=== PATIENT | female | born 1960 | race Caucasian/White ===

== ENCOUNTER 2022-05-07 09:13 | Emergency (ER) | payer BC, SELFPAY ==
[2022-05-07] VITALS (9 sets, daily range): BP systolic 107–135; BP diastolic 57–67; PULSE 77–98; RESP 16–19; TEMP 36.8; O2SAT 98–100; BMI 27.3
[2022-05-07 10:07] LABS: Appearance Urine UA CLEAR; Bilirubin Urine UA 2+ (NEGATIVE); Color Urine UA YELLOW; Glucose Urine UA TRACE g/dL (Negative); Ketones Urine UA 3+ (NEGATIVE); Leukocyte Esterase Urine UA NEGATIVE (NEGATIVE); Nitrite Urine UA NEGATIVE (Negative); Occult Blood Urine UA 2+ (Negative); Protein Urine UA 2+ (Negative); Specific Gravity Urine UA 1.025 (1.000-1.035); Urobilinogen Urine UA 0.2 E.U./dL (0.2)
[2022-05-07 10:17] LABS: Ictotest Urine Negative (Negative); RBC Urine 5-10/HPF (0-5/HPF)
[2022-05-07 10:18] LABS: Bacteria Urine Many (>30); Culture Indicated Urine Cult Not Indicated; Mucus Urine 2+ (Negative); Squamous Epithelial Cell Urine >30 /HPF (0-5/HPF); WBC Urine 0-1/HPF (0-5/HPF)
[2022-05-07 11:16] LABS: Adenovirus F 40/41 Not Detected (Not Detect); Astrovirus Not Detected (Not Detect); Campylobacter Not Detected (Not Detect); Cryptosporidium Not Detected (Not Detect); Cyclospora cayetanensis Not Detected (Not Detect); Entamoeba histolytica Not Detected (Not Detect); Enteroaggregative E.coli Not Detected (Not Detect); Enteropathogenic E.coli Not Detected (Not Detect); Enterotoxigenic E.coli It/st Not Detected (Not Detect); Giardia lamblia Not Detected (Not Detect); Norovirus GI/GII Not Detected (Not Detect); Plesiomonsa shigelloides Not Detected (Not Detect); Rotavirus A Not Detected (Not Detect); Salmonella Not Detected (Not Detect); Sapovirus Not Detected (Not Detect); Shiga-like toxin-prod E.coli Not Detected (Not Detect); Shigella/Enteroinvasive E.coli Not Detected (Not Detect); Vibrio Not Detected (Not Detect); Vibrio cholerae Not Detected (Not Detect); Yersinia enterocolitica Not Detected (Not Detect)
[2022-05-07 11:17] LABS: Clostridium difficile toxin AB Detected (Not Detect)
[2022-05-07 12:05] LABS: Add Manual Diff / Slide Review NO; Basophils Absolute Auto 0 /uL (0-100); Basophils Percent Auto 0.3 % (0-2); Eosinophils Absolute Auto 200 /uL (0-450); Eosinophils Percent Auto 1.7 % (2-4); Hematocrit 39.1 % (36-46); Hemoglobin 13.2 g/dL (12.0-16.0); Lymphocytes Absolute Auto 1500 /uL (1100-4500); Lymphocytes Percent Auto 10.7 % (25-40); Mean Corpuscular HGB Conc 33.8 % (30-36); Mean Corpuscular Hemoglobin 29.1 PG (26-34); Mean Corpuscular Volume 86.1 fL (80-100); Monocytes Absolute Auto 1000 /uL (0-900); Neutrophils Absolute Auto 11100 /uL (1500-7000); Neutrophils Percent Auto 80.3 % (50-75); Platelet Count 236 X10^3/uL (150-400); Red Blood Cell Count 4.55 X10^6/uL (4.0-5.2); Red Cell Distribution Width 13.5 % (11.6-14.8); White Blood Cell Count 13.8 X10^3/uL (4.5-11.0)
--- NOTE | 2022-05-07 12:24 | ED_ITS ---
HPI - Nausea/Vomiting/Diarrhea <DANTE Umana - Last Filed: 05/07/22 15:12> General Chief complaint: Nausea/Vomiting/Diarrhea Stated complaint: diarrhea, now has black stool Time Seen by Provider: 05/07/22 11:04 Source: patient Mode of arrival: Family Vehicle History of Present Illness HPI Narrative: Patient presents to the emergency department complaining of severe diarrhea over the last week but endorses that she is had diarrhea for approximately four months. She states that she feels poorly, states everything from her ribcage down is tender in her abdomen. She complains of nausea, diarrhea frequently, states that her stools are dark in color, and she feels severe discomfort in abdomen. Denies any fever, chills, diaphoresis, weakness, states that she has lost quite a bit of weight. She endorses also having flank pain which started recently. She feels dehydrated and is concerned something wrong with her falls. She denies any history of abdominal surgeries in the past. She states that she is traveling, she lives in [place], has a flight back home in two days. Related Data Previous Rx's Medication Instructions Recorded ondansetron 4 mg disintegrating 4 mg PO Q8H PRN nausea and 05/07/22 tablet vomiting #10 tabs vancomycin 125 mg capsule 125 mg PO QID 12 days #48 caps 05/07/22 Allergies Allergy/AdvReac Type Severity Reaction Status Date / Time levofloxacin [From Levaquin] Allergy Rash Verified 05/07/22 09:33 Review of Systems <DANTE Umana - Last Filed: 05/07/22 15:12> Review of Systems Narrative: General: denies fever, chills Head/Neck: denies headache, neck pain Eyes: denies visual changes, eye pain Cardio: denies chest pain, palpitations Respiratory: denies shortness of breath, cough GI: Complains of significant abdominal pain with nausea, vomiting, or diarrhea : Endorses dysuria, hematuria or flank pain MSK: denies new joint pain, muscle weakness or swelling Skin: denies rash, itching or wound Neuro: denies numbness, tingling, dizziness Patient History <DANTE Umana - Last Filed: 05/07/22 15:12> Social History Smoking Status: Never smoker Smoking Status: Never smoker alcohol intake frequency: 0-2 drinks per day Substance Use Type: does not use Exam <DANTE Umana - Last Filed: 05/07/22 15:12> Narrative Exam Narrative: Independently reviewed vitals signs and nursing notes. General: Appears uncomfortable, mild distress, well groomed Head: atraumatic, symmetrical facial expressions Neck: supple Eyes: equal round and reactive, EOMI, conjunctiva normal Nose: nares patent, no rhinorrhea Mouth/Throat: moist mucus membranes Cardiovascular: regular rate and rhythm, no peripheral edema, warm extremities Respiratory: normal effort, able to speak in complete sentences, no audible wheezing, stridor, or rales. No retractions or tachypnea. GI: abdomen soft, diffusely tender to palpation, mildly distended, no masses, no exquisite tenderness with exam, without guarding or rebound, suprapubic ten derness MSK: moves all extremities, neurovascularly intact, no weakness, normal tone Skin: brisk capillary refill, no rash, no erythema Neuro: normal speech and cognition, A&O x3 Psych: mental status is grossly normal, congruent mood, normal affect, pleasant and cooperative Initial Vital Signs Initial Vital Signs: Vital Signs Temperature 98.3 F 05/07/22 09:25 Pulse Rate 98 H 05/07/22 09:25 Respiratory Rate 19 05/07/22 09:25 Blood Pressure 121/62 05/07/22 09:25 Pulse Oximetry 99 05/07/22 09:25 Oxygen Delivery Method 05/07/22 09:25 <Trisha Lam DO - Last Filed: 05/13/22 21:40> Initial Vital Signs Initial Vital Signs: Vital Signs Temperature 98.3 F 05/07/22 09:25 Pulse Rate 98 H 05/07/22 09:25 Respiratory Rate 19 05/07/22 09:25 Blood Pressure 121/62 05/07/22 09:25 Pulse Oximetry 99 05/07/22 09:25 Oxygen Delivery Method 05/07/22 09:25 Course <DANTE Umana - Last Filed: 05/07/22 15:12> Orders Ordered: Discontinued Medications Hydromorphone HCl (Hydromorphone 0.5 Mg Inj) 0.5 mg IV NOW ONE Stop: 05/07/22 12:23 Last Admin: 05/07/22 13:40 Dose: 0.5 mg Documented By: LENKA Lactated Ringer's (Lactated Ringers) 1,000 mls @ 1,000 mls/hr IV BOLUS ONE Stop: 05/07/22 13:21 Last Infusion: 05/07/22 15:40 Dose: 0 mls/hr Documented By: Admin: 05/07/22 13:41 Dose: 1,000 mls/hr Documented By: LENKA Ceftriaxone Sodium 1,000 mg/ (Sodium Chloride) 100 mls @ 200 mls/hr IV NOW ONE Stop: 05/07/22 12:23 Last Infusion: 05/07/22 14:15 Dose: 0 mls/hr Documented By: Admin: 05/07/22 13:41 Dose: 200 mls/hr Documented By: LENKA Pantoprazole Sodium (Pantoprazole 40 Mg Vial) 20 mg IV NOW ONE Stop: 05/07/22 12:41 Last Admin: 05/07/22 13:41 Dose: 20 mg Documented By: LENKA Vancomycin HCl (Vancomycin 125 Mg Capsule) 125 mg PO NOW ONE Stop: 05/07/22 12:23 Last Admin: 05/07/22 13:00 Dose: 125 mg Documented By: LENKA Vital Signs Vital signs: Vital Signs - 8 hr 05/07/22 09:25 05/07/22 11:05 05/07/22 11:05 Temperature 98.3 F Pulse Rate 98 H 83 Respiratory Rate 19 Blood Pressure 121/62 135/67 Pulse Oximetry 99 99 Oxygen Delivery Method Room Air 05/07/22 13:09 05/07/22 13:36 05/07/22 13:46 Temperature Pulse Rate 84 85 Respiratory Rate 16 Blood Pressure 121/65 Pulse Oximetry 99 99 Oxygen Delivery Method 05/07/22 13:46 Temperature Pulse Rate 82 Respiratory Rate Blood Pressure Pulse Oximetry 99 Oxygen Delivery Method <Trisha Lam DO - Last Filed: 05/13/22 21:40> Orders Ordered: Discontinued Medications Hydromorphone HCl (Hydromorphone 0.5 Mg Inj) 0.5 mg IV NOW ONE Stop: 05/07/22 12:23 Last Admin: 05/07/22 13:40 Dose: 0.5 mg Documented By: LENKA Lactated Ringer's (Lactated Ringers) 1,000 mls @ 1,000 mls/hr IV BOLUS ONE Stop: 05/07/22 13:21 Last Infusion: 05/07/22 15:40 Dose: 0 mls/hr Documented By: Admin: 05/07/22 13:41 Dose: 1,000 mls/hr Documented By: LENKA Ceftriaxone Sodium 1,000 mg/ (Sodium Chloride) 100 mls @ 200 mls/hr IV NOW ONE Stop: 05/07/22 12:23 Last Infusion: 05/07/22 14:15 Dose: 0 mls/hr Documented By: Admin: 05/07/22 13:41 Dose: 200 mls/hr Documented By: LENKA Pantoprazole Sodium (Pantoprazole 40 Mg Vial) 20 mg IV NOW ONE Stop: 05/07/22 12:41 Last Admin: 05/07/22 13:41 Dose: 20 mg Documented By: LENKA Vancomycin HCl (Vancomycin 125 Mg Capsule) 125 mg PO NOW ONE Stop: 05/07/22 12:23 Last Admin: 05/07/22 13:00 Dose: 125 mg Documented By: LENKA Vital Signs Vital signs: Vital Signs - 8 hr 05/07/22 09:25 05/07/22 11:05 05/07/22 11:05 Temperature 98.3 F Pulse Rate 98 H 83 Respiratory Rate 19 Blood Pressure 121/62 135/67 Pulse Oximetry 99 99 Oxygen Delivery Method Room Air 05/07/22 13:09 05/07/22 13:36 05/07/22 13:46 Temperature Pulse Rate 84 85 Respiratory Rate 16 Blood Pressure 121/65 Pulse Oximetry 99 99 Oxygen Delivery Method 05/07/22 13:46 Temperature Pulse Rate 82 Respiratory Rate Blood Pressure Pulse Oximetry 99 Oxygen Delivery Method MDM - Nausea/Vomiting/Diarrhea <DANTE Umana - Last Filed: 05/07/22 15:12> Lab Data Result diagrams: 05/07/22 11:51 05/07/22 11:51 Labs: Lab Results 05/07/22 05/07/22 05/07/22 Range/Units 09:55 09:55 09:55 WBC (4.5-11.0) X10^3/uL RBC (4.0-5.2) X10^6/uL Hgb (12.0-16.0) g/dL Hct (36-46) % MCV (80-100) fL MCH (26-34) PG MCHC (30-36) % RDW (11.6-14.8) % Plt Count (150-400) X10^3/uL Neut % (Auto) (50-75) % Lymph % (Auto) (25-40) % [place] % (Auto) (3-14) % Eos % (Auto) (2-4) % Baso % (Auto) (0-2) % Neut # (Auto) (9658-0185) /uL Lymph # (Auto) (7040-0417) /uL [place] # (Auto) (0-900) /uL Eos # (Auto) (0-450) /uL Baso # (Auto) (0-100) /uL Sodium (137-145) mmol/L Potassium (3.4-5.1) mmol/L Chloride (98-107) mmol/L Carbon Dioxide (22-32) mmol/L BUN (7-17) mg/dL Creatinine (0.52-1.04) mg/dL Estimated GFR (>60) mL/min BUN/Creatinine Ratio (6-22) Glucose (80-110) mg/dL Calcium (8.4-10.2) mg/dL Total Bilirubin (0.2-1.3) mg/dL AST (14-36) IU/L ALT (<35) IU/L Alkaline Phosphatase (38-126) U/L Total Protein (6.3-8.2) g/dL Albumin (3.5-5.0) g/dL Globulin (1.7-4.1) g/dL Albumin/Globulin Ratio (1.0-2.8) Lipase (23-300) U/L Urine Color Yellow Urine Appearance Clear Urine pH 6.0 (4.5-8.0) Ur Specific [place] 1.025 (1.000-1.035) Urine Protein 2+ H (Negative) Urine Glucose (UA) Trace H (Negative) g/dL Urine Ketones 3+ H (NEGATIVE) Urine Occult Blood 2+ H (Negative) Urine Nitrate Negative (Negative) Urine Bilirubin 2+ H (NEGATIVE) Ur Bilirubin Confirm Negative (Negative) Urine Urobilinogen 0.2 (0.2) E.U./dL Ur Leukocyte Esterase Negative (NEGATIVE) Urine RBC 5-10/hpf H (0-5/HPF) Urine WBC 0-1/hpf (0-5/HPF) Ur Squamous Epith Cells >30 /hpf H (0-5/HPF) Urine Bacteria Many (>30) H (None) Urine Mucus 2+ H (Negative) Ur Culture Indicated? Cult not indicated Stl C. cayetanensis PCR Not detected (Not Detect) Stool Rotavirus (PCR) Not detected (Not Detect) Stool Adenovirus (PCR) Not detected (Not Detect) Stool Astrovirus (PCR) Not detected (Not Detect) Stool Cryptosporidium PCR Not detected (Not Detect) Stl E.coli Shiga Tox PCR Not detected (Not Detect) St Sh/Enteroin Ecoli PCR Not detected (Not Detect) Stool E coli O157 PCR Not Reportable Stl Enterotoxigenic E PCR Not detected (Not Detect) Stool EPEC (PCR) Not detected (Not Detect) Stl E. histolytica PCR Not detected (Not Detect) Stool Giardia Lamblia PCR Not detected (Not Detect) Stool Sapovirus (PCR) Not detected (Not Detect) Stl P. shigelloides PCR Not detected (Not Detect) St Y.enterocolitica PCR Not detected (Not Detect) Stool Vibrio (PCR) Not detected (Not Detect) Stl Vibrio cholerae PCR Not detected (Not Detect) Stl Enteroaggr Ecoli PCR Not detected (Not Detect) Stl Norovirus GI/GII PCR Not detected (Not Detect) Campylobacter (PCR) Not detected (Not Detect) C. difficile Tox (PCR) Detected H (Not Detect) C. diff Toxin A&B (EIA) Negative (Negative) Salmonella (PCR) Not detected (Not Detect) 05/07/22 05/07/22 Range/Units 11:51 11:51 WBC 13.8 H (4.5-11.0) X10^3/uL RBC 4.55 (4.0-5.2) X10^6/uL Hgb 13.2 (12.0-16.0) g/dL Hct 39.1 (36-46) % MCV 86.1 (80-100) fL MCH 29.1 (26-34) PG MCHC 33.8 (30-36) % RDW 13.5 (11.6-14.8) % Plt Count 236 (150-400) X10^3/uL Neut % (Auto) 80.3 H (50-75) % Lymph % (Auto) 10.7 L (25-40) % [place] % (Auto) 7.0 (3-14) % Eos % (Auto) 1.7 L (2-4) % Baso % (Auto) 0.3 (0-2) % Neut # (Auto) 17776 H (7094-3676) /uL Lymph # (Auto) 1500 (9405-4172) /uL [place] # (Auto) 1000 H (0-900) /uL Eos # (Auto) 200 (0-450) /uL Baso # (Auto) 0 (0-100) /uL Sodium 136 L (137-145) mmol/L Potassium 4.0 (3.4-5.1) mmol/L Chloride 101 (98-107) mmol/L Carbon Dioxide 22 (22-32) mmol/L BUN 14 (7-17) mg/dL Creatinine 0.82 (0.52-1.04) mg/dL Estimated GFR > 60 (>60) mL/min BUN/Creatinine Ratio 17.1 (6-22) Glucose 79 L (80-110) mg/dL Calcium 8.7 (8.4-10.2) mg/dL Total Bilirubin 0.6 (0.2-1.3) mg/dL AST 26 (14-36) IU/L ALT 17 (<35) IU/L Alkaline Phosphatase 56 (38-126) U/L Total Protein 6.3 (6.3-8.2) g/dL Albumin 3.7 (3.5-5.0) g/dL Globulin 2.6 (1.7-4.1) g/dL Albumin/Globulin Ratio 1.4 (1.0-2.8) Lipase 41 (23-300) U/L Urine Color Urine Appearance Urine pH (4.5-8.0) Ur Specific [place] (1.000-1.035) Urine Protein (Negative) Urine Glucose (UA) (Negative) g/dL Urine Ketones (NEGATIVE) Urine Occult Blood (Negative) Urine Nitrate (Negative) Urine Bilirubin (NEGATIVE) Ur Bilirubin Confirm (Negative) Urine Urobilinogen (0.2) E.U./dL Ur Leukocyte Esterase (NEGATIVE) Urine RBC (0-5/HPF) Urine WBC (0-5/HPF) Ur Squamous Epith Cells (0-5/HPF) Urine Bacteria (None) Urine Mucus (Negative) Ur Culture Indicated? Stl C. cayetanensis PCR (Not Detect) Stool Rotavirus (PCR) (Not Detect) Stool Adenovirus (PCR) (Not Detect) Stool Astrovirus (PCR) (Not Detect) Stool Cryptosporidium PCR (Not Detect) Stl E.coli Shiga Tox PCR (Not Detect) St Sh/Enteroin Ecoli PCR (Not Detect) Stool E coli O157 PCR Stl Enterotoxigenic E PCR (Not Detect) Stool EPEC (PCR) (Not Detect) Stl E. histolytica PCR (Not Detect) Stool Giardia Lamblia PCR (Not Detect) Stool Sapovirus (PCR) (Not Detect) Stl P. shigelloides PCR (Not Detect) St Y.enterocolitica PCR (Not Detect) Stool Vibrio (PCR) (Not Detect) Stl Vibrio cholerae PCR (Not Detect) Stl Enteroaggr Ecoli PCR (Not Detect) Stl Norovirus GI/GII PCR (Not Detect) Campylobacter (PCR) (Not Detect) C. difficile Tox (PCR) (Not Detect) C. diff Toxin A&B (EIA) (Negative) Salmonella (PCR) (Not Detect) [facility] [place] Narrative Medical decision making narrative: This is a 62-year-old female presents to the emergency department complaining of diarrhea for at least four months but worse last week and especially worse over last 48 hours. She endorses having dark stools, has been afebrile, has not been on any antibiotics recently. She is traveling from [place] and came to the emergency department due to her frequent C and diarrhea and abdominal pain. Her lab work today was significant for elevated WBC, leukocytosis of 13.8, sodium of 136, her urine was significant for bacteria, RBCs and her stool was positive for C difficile. Patient denies any known exposure but states that over the last week of traveling it definitely got worse. She was given 1 L of lactated Ringer's, Zofran, treated her urine because she was symptomatic with dysuria and suprapubic pressure with ceftriaxone. Prescribe patient vancomycin 125 mg q.i.d. for 12 days so she has time to follow-up with her primary care provider at home. She has a history of allergy to Levaquin, denies any prior infections of Clostridium difficile. Patient understands the stay hydrated, to not take any stool bulking agents as she has been and to follow-up with her provider as needed. She was given strict return precautions, she was prescribed cephalexin for her bacterial load in her urine and culture is pending. No peritoneal signs on abdominal exam. Patient remains p.o. tolerant. Serial abdominal exam without increase in abdominal pain. Given history and exam, low suspicion for acute abdominal process, such as acute cholecystitis, pancreatitis, perforated viscus, atypical appendicitis, colitis, diverticulitis or torsion. Extensive conversation about ER return precautions and need for close follow-up. Patient is appropriate and amenable to discharge home. Vital signs are stable on repeat examination is unremarkable. Patient has been informed of results. Patient has been given strict return to ER precautions for any new or worsening symptoms. Patient understands to follow up closely with outpatient providers as inst ructed. Patient understands plan and agrees to discharge home. All questions and concerns answered at this time. <Trisha Lam, DO - Last Filed: 05/13/22 21:40> Lab Data Labs: Lab Results 05/07/22 05/07/22 05/07/22 Range/Units 09:55 09:55 09:55 WBC (4.5-11.0) X10^3/uL RBC (4.0-5.2) X10^6/uL Hgb (12.0-16.0) g/dL Hct (36-46) % MCV (80-100) fL MCH (26-34) PG MCHC (30-36) % RDW (11.6-14.8) % Plt Count (150-400) X10^3/uL Neut % (Auto) (50-75) % Lymph % (Auto) (25-40) % [place] % (Auto) (3-14) % Eos % (Auto) (2-4) % Baso % (Auto) (0-2) % Neut # (Auto) (0561-4735) /uL Lymph # (Auto) (3487-2572) /uL [place] # (Auto) (0-900) /uL Eos # (Auto) (0-450) /uL Baso # (Auto) (0-100) /uL Sodium (137-145) mmol/L Potassium (3.4-5.1) mmol/L Chloride (98-107) mmol/L Carbon Dioxide (22-32) mmol/L BUN (7-17) mg/dL Creatinine (0.52-1.04) mg/dL Estimated GFR (>60) mL/min BUN/Creatinine Ratio (6-22) Glucose (80-110) mg/dL Calcium (8.4-10.2) mg/dL Total Bilirubin (0.2-1.3) mg/dL AST (14-36) IU/L ALT (<35) IU/L Alkaline Phosphatase (38-126) U/L Total Protein (6.3-8.2) g/dL Albumin (3.5-5.0) g/dL Globulin (1.7-4.1) g/dL Albumin/Globulin Ratio (1.0-2.8) Lipase (23-300) U/L Urine Color Yellow Urine Appearance Clear Urine pH 6.0 (4.5-8.0) Ur Specific [place] 1.025 (1.000-1.035) Urine Protein 2+ H (Negative) Urine Glucose (UA) Trace H (Negative) g/dL Urine Ketones 3+ H (NEGATIVE) Urine Occult Blood 2+ H (Negative) Urine Nitrate Negative (Negative) Urine Bilirubin 2+ H (NEGATIVE) Ur Bilirubin Confirm Negative (Negative) Urine Urobilinogen 0.2 (0.2) E.U./dL Ur Leukocyte Esterase Negative (NEGATIVE) Urine RBC 5-10/hpf H (0-5/HPF) Urine WBC 0-1/hpf (0-5/HPF) Ur Squamous Epith Cells >30 /hpf H (0-5/HPF) Urine Bacteria Many (>30) H (None) Urine Mucus 2+ H (Negative) Ur Culture Indicated? Cult not indicated Stl C. cayetanensis PCR Not detected (Not Detect) Stool Rotavirus (PCR) Not detected (Not Detect) Stool Adenovirus (PCR) Not detected (Not Detect) Stool Astrovirus (PCR) Not detected (Not Detect) Stool Cryptosporidium PCR Not detected (Not Detect) Stl E.coli Shiga Tox PCR Not detected (Not Detect) St Sh/Enteroin Ecoli PCR Not detected (Not Detect) Stool E coli O157 PCR Not Reportable Stl Enterotoxigenic E PCR Not detected (Not Detect) Stool EPEC (PCR) Not detected (Not Detect) Stl E. histolytica PCR Not detected (Not Detect) Stool Giardia Lamblia PCR Not detected (Not Detect) Stool Sapovirus (PCR) Not detected (Not Detect) Stl P. shigelloides PCR Not detected (Not Detect) St Y.enterocolitica PCR Not detected (Not Detect) Stool Vibrio (PCR) Not detected (Not Detect) Stl Vibrio cholerae PCR Not detected (Not Detect) Stl Enteroaggr Ecoli PCR Not detected (Not Detect) Stl Norovirus GI/GII PCR Not detected (Not Detect) Campylobacter (PCR) Not detected (Not Detect) C. difficile Tox (PCR) Detected H (Not Detect) C. diff Toxin A&B (EIA) Negative (Negative) Salmonella (PCR) Not detected (Not Detect) 05/07/22 05/07/22 Range/Units 11:51 11:51 WBC 13.8 H (4.5-11.0) X10^3/uL RBC 4.55 (4.0-5.2) X10^6/uL Hgb 13.2 (12.0-16.0) g/dL Hct 39.1 (36-46) % MCV 86.1 (80-100) fL MCH 29.1 (26-34) PG MCHC 33.8 (30-36) % RDW 13.5 (11.6-14.8) % Plt Count 236 (150-400) X10^3/uL Neut % (Auto) 80.3 H (50-75) % Lymph % (Auto) 10.7 L (25-40) % [place] % (Auto) 7.0 (3-14) % Eos % (Auto) 1.7 L (2-4) % Baso % (Auto) 0.3 (0-2) % Neut # (Auto) 91832 H (5761-4253) /uL Lymph # (Auto) 1500 (9656-6922) /uL [place] # (Auto) 1000 H (0-900) /uL Eos # (Auto) 200 (0-450) /uL Baso # (Auto) 0 (0-100) /uL Sodium 136 L (137-145) mmol/L Potassium 4.0 (3.4-5.1) mmol/L Chloride 101 (98-107) mmol/L Carbon Dioxide 22 (22-32) mmol/L BUN 14 (7-17) mg/dL Creatinine 0.82 (0.52-1.04) mg/dL Estimated GFR > 60 (>60) mL/min BUN/Creatinine Ratio 17.1 (6-22) Glucose 79 L (80-110) mg/dL Calcium 8.7 (8.4-10.2) mg/dL Total Bilirubin 0.6 (0.2-1.3) mg/dL AST 26 (14-36) IU/L ALT 17 (<35) IU/L Alkaline Phosphatase 56 (38-126) U/L Total Protein 6.3 (6.3-8.2) g/dL Albumin 3.7 (3.5-5.0) g/dL Globulin 2.6 (1.7-4.1) g/dL Albumin/Globulin Ratio 1.4 (1.0-2.8) Lipase 41 (23-300) U/L Urine Color Urine Appearance Urine pH (4.5-8.0) Ur Specific [place] (1.000-1.035) Urine Protein (Negative) Urine Glucose (UA) (Negative) g/dL Urine Ketones (NEGATIVE) Urine Occult Blood (Negative) Urine Nitrate (Negative) Urine Bilirubin (NEGATIVE) Ur Bilirubin Confirm (Negative) Urine Urobilinogen (0.2) E.U./dL Ur Leukocyte Esterase (NEGATIVE) Urine RBC (0-5/HPF) Urine WBC (0-5/HPF) Ur Squamous Epith Cells (0-5/HPF) Urine Bacteria (None) Urine Mucus (Negative) Ur Culture Indicated? Stl C. cayetanensis PCR (Not Detect) Stool Rotavirus (PCR) (Not Detect) Stool Adenovirus (PCR) (Not Detect) Stool Astrovirus (PCR) (Not Detect) Stool Cryptosporidium PCR (Not Detect) Stl E.coli Shiga Tox PCR (Not Detect) St Sh/Enteroin Ecoli PCR (Not Detect) Stool E coli O157 PCR Stl Enterotoxigenic E PCR (Not Detect) Stool EPEC (PCR) (Not Detect) Stl E. histolytica PCR (Not Detect) Stool Giardia Lamblia PCR (Not Detect) Stool Sapovirus (PCR) (Not Detect) Stl P. shigelloides PCR (Not Detect) St Y.enterocolitica PCR (Not Detect) Stool Vibrio (PCR) (Not Detect) Stl Vibrio cholerae PCR (Not Detect) Stl Enteroaggr Ecoli PCR (Not Detect) Stl Norovirus GI/GII PCR (Not Detect) Campylobacter (PCR) (Not Detect) C. difficile Tox (PCR) (Not Detect) C. diff Toxin A&B (EIA) (Negative) Salmonella (PCR) (Not Detect) Discharge Plan Departure Patient Disposition: Home Clinical Impression: Clostridium difficile infection Acute cystitis Qualifiers: Hematuria presence: with hematuria Qualified Code(s): N30.01 - Acute cystitis with hematuria Instructions: Acute Cystitis, Clostridioides (Clostridium) difficile Infection Activity Restrictions/Additional Instructions: *You have been diagnosed with Clostridium difficile and a bladder infection. Please take these antibiotics as they are prescribed, and schedule a follow-up appointment with your primary care provider in 1-2 weeks for a recheck. Your vancomycin dosing is 4 times a day and I gave you 12 days' worth. You may stop taking it at 10 days if your symptoms have been gone for at least 2 days. Please stay hydrated, empty her bladder often, avoid any stool bulking agents until you are free and clear of infection. I printed off some information for you to read about. Your medications are waiting for you at [facility] here in [place], thank you for trusting us with your care, please come back if you get any worse. *What to do: *Please continue to take your regular medications as directed. [ x] New medication prescriptions sent to your pharmacy: [[facility] ] [ ] New medication written as a paper prescription [ ] No new medications given *Please follow up with your primary care provider in 2-3 days, call for an appointment. Let them know you were seen in the Emergency Department and that we asked that you be seen for follow-up. We will electronically transmit a record of today's note if your PCP is in our system *If you do not have a primary care provider please contact [phone] to establish care with one of the [facility] primary care providers. *Return to Emergency Department if you should have any new, worsening or concerning symptoms, such as [fever greater than 101F, chills, worsening pain, persistent vomiting or other bothersome symptoms] Prescriptions: New vancomycin 125 mg capsule 125 mg PO QID 12 Days Qty: 48 0RF ondansetron 4 mg tablet,disintegrating 4 mg PO Q8H PRN (Reason: nausea and vomiting) Qty: 10 0RF Visit Report Forms: Patient Portal/API <Trisha Lam DO - Last Filed: 05/13/22 21:40> Cosign ED Attending Cosignature Attestation: I was immediately available in the department for consultation. Documentation has been reviewed.
[2022-05-07 12:25] LABS: Alanine Aminotransferase 17 IU/L (<35); Albumin 3.7 g/dL (3.5-5.0); Albumin Globulin Ratio 1.4 (1.0-2.8); Alkaline Phosphatase 56 U/L (38-126); Aspartate Aminotransferase 26 IU/L (14-36); BUN Creatinine Ratio 17.1 (6-22); Bilirubin Total 0.6 mg/dL (0.2-1.3); Blood Urea Nitrogen 14 mg/dL (7-17); Calcium 8.7 mg/dL (8.4-10.2); Carbon Dioxide 22 mmol/L (22-32); Chloride 101 mmol/L (98-107); Estimated Glomerular Filt Rate > 60 mL/min (>60); Globulin 2.6 g/dL (1.7-4.1); Glucose 79 mg/dL (80-110); Lipase 41 U/L (23-300); Sodium 136 mmol/L (137-145); Total Protein 6.3 g/dL (6.3-8.2)
[2022-05-07 12:27] LABS: HEMOLYSIS 72 (0-50)
[2022-05-07] MEDS: VANCOMYCIN 125 MG CAPSULE PO (13:00)
[2022-05-07] MEDS: HYDROMORPHONE 0.5 MG INJ IV (13:40)
[2022-05-07] MEDS: PANTOPRAZOLE 40 MG VIAL 20 MG IV (13:41)
[2022-05-07] MEDS: LACTATED RINGERS 1,000 ML 1000 ML IV (13:41)
[2022-05-07] MEDS: cefTRIAXone 1,000 MG in SODIUM CHLORIDE 0.9% 100 ML 200 MG IV (13:41)
[2022-05-08 14:42] LABS: C difficie Toxins A and B, EIA Negative (Negative)
== END 2022-05-07 15:59 | disposition home or self-care (01) ==
PROVIDERS: Emergency Medicine; Emergency Provider Nurse Practitioner Critical Care Medicine
DX: A04.72 Enterocolitis due to Clostridium difficile, not specified as recurrent (principal); N30.01 Acute cystitis with hematuria
CPT/HCPCS: 36415; 80053; 81001; 83690; 85025; 87086; 87324; 87507; 96361; 96365; 96375; 99284; C9113; J0696; J1170